=== PATIENT | male | born 1975 | race Caucasian/White ===

== ENCOUNTER 2019-01-06 11:16 | Inpatient (IN) | payer OTHER ==
[~2019-01-06] VITALS: Ht 185.4 cm; Wt 86.4 kg
[2019-01-06] MEDS ORDERED: LIDOcaine 1% w/epiNEPHrine 1:200,000 30ml vial IM ONE (11:20)
[2019-01-06] MEDS ORDERED: morphine 4 MG/ML inj SYRINge ONE (11:28)
[2019-01-06] MEDS ORDERED: morphine 4 MG/ML inj SYRINge IV ONE ×2 (11:30→11:55)
[2019-01-06 11:34] LABS: BASOPHILS % (AUTO) 0.7 % (0-1); EOSINOPHILS # (AUTO) 0.1 X10'3 (0-0.9); EOSINOPHILS % (AUTO) 1.8 % (0-6); HEMATOCRIT 45.8 % (42.0-52.0); HEMOGLOBIN 15.8 g/dl (14.0-17.9); LYMPHOCYTES # (AUTO) 1.3 X10'3 (1.1-4.8); LYMPHOCYTES % (AUTO) 17.2 % (21-51); MEAN CORPUSCULAR HEMOGLOBIN 29.8 PG (27.0-31.0); MEAN CORPUSCULAR HGB CONC 34.6 g/dL (33.0-36.5); MEAN CORPUSCULAR VOLUME 86.3 FL (78-98); MEAN PLATELET VOLUME 8.2 FL (7.4-10.4); MONOCYTES # (AUTO) 0.7 X10'3 (0-0.9); MONOCYTES % (AUTO) 9.9 % (2-12); NEUTROPHILS # (AUTO) 5.2 X10'3 (1.8-7.7); NEUTROPHILS % (AUTO) 70.4 % (42-75); PLATELET COUNT 224 X10'3 (140-440); RED BLOOD COUNT 5.31 X10'6 (4.70-6.10); RED CELL DISTRIBUTION WIDTH 13.6 % (11.5-14.5); WHITE BLOOD COUNT 7.4 X10'3 (4.5-11.0)
--- NOTE | 2019-01-06 11:39 | NUR ---
DR FIGUEROA AT BEDSIDE AT THIS TIME TO INSERT CHEST TUBE TO RIGHT SIDE CHEST, PATIENT AWARE OF PROCEDURE, ALL QUESTIONS AND CONCERNS ADDRESSED. BP 139/87, HR 103, RR 22, SPO2 96% ON ROOM AIR, MEDICATED FOR PAIN PER MD ORDER (SEE EMAR). 1143 INCISION MADE AT THIS TIME BY MD. PATIENT TOLERATING WELL, TUBE INSERTED, OFFICER AT BEDSIDE FOR SAFETY.
[2019-01-06 11:47] LABS: ALANINE AMINOTRANSFERASE 60 U/L (12-78); ALBUMIN 3.7 G/DL (3.4-5.0); ALKALINE PHOSPHATASE 84 IU/L (46-116); ANION GAP 6 (8-16); ASPARTATE AMINO TRANSFERASE 44 U/L (10-37); BILIRUBIN,TOTAL 0.5 MG/DL (0.1-1.0); BLOOD UREA NITROGEN 16 MG/DL (7-18); BUN/CREATININE RATIO 17.8 (5.4-32.0); CALCIUM 9.5 MG/DL (8.5-10.1); CHLORIDE 102 MMOL/L (99-107); GLUCOSE 94 MG/DL (70-104); POTASSIUM 4.2 MMOL/L (3.5-5.1); SODIUM 139 MMOL/L (135-145); TOTAL CARBON DIOXIDE 30.7 MMOL/L (24-32); TOTAL PROTEIN 7.5 G/DL (6.4-8.2); eGFR > 90 ML/MIN
--- NOTE | 2019-01-06 11:55 | NUR ---
PATIENT STATES PAIN 10/10 TO RIGHT SHOULDER, PAIN PREVIOUSLY PRESENT BUT HAS INCREASED SINCE TUBE PLACEMENT, PATIENT DIAPHORETIC, PALE, REPEAT CHEST XRAY CONFIRMED CORRECT PLACEMENT OF TUBE PER DR FIGUEROA. PATIENT MEDICATED FOR PAIN (SEE EMAR) PER MD ORDER. OFFICER AT BEDSIDE FOR SAFETY.
[2019-01-06] MEDS ORDERED: morphine 4 MG/ML inj SYRINge IV PRN (12:15)
[2019-01-06] MEDS ORDERED: NO HOME MEDS (12:20)
[2019-01-06] MEDS ORDERED: OMEP20TA23 PO (13:52)
--- NOTE | 2019-01-06 13:59 | NUR ---
PT GIVEN A DRINK OF WATER.
--- NOTE | 2019-01-06 15:00 | NUR ---
Patient in room [facility]. I have received report from Anabelle and had the opportunity to ask questions and assume patient care. patient orientated tounit. is inmate of [facility] cuffed at hands and feet. Guard present. patient pleasant and cooperative. chest tube in place draining minimal sero sang drainage. Low cont suction. Medicated x2 for pain. painful right shoulder, see xray note. medicated for pain.
[2019-01-06] MEDS ORDERED: ipratropium/albuterol 3ml nebule NEB PRN (15:05)
[2019-01-06] MEDS ORDERED: magnesium Cl slow-release 64mg tablet PO PRN (15:05)
[2019-01-06] MEDS ORDERED: potassium Cl 40MEQ/NS 500ml 500 ML IV PRN (15:05)
[2019-01-06] MEDS ORDERED: magnesium hydroxide 30ml (MOM) UD suspension PO PRN (15:05)
[2019-01-06] MEDS ORDERED: mag hydrox/Alum hydrox/simeth 30ml oral suspension PO PRN (15:05)
[2019-01-06] MEDS ORDERED: ondansetron/PF 4mg/2ml inj IV PRN (15:05)
[2019-01-06] MEDS ORDERED: diphenhydrAMINE 25mg capsule PO PRN (15:05)
[2019-01-06] MEDS ORDERED: magnesium 4gm in 100ml NS 100 ML IV PRN (15:05)
[2019-01-06] MEDS ORDERED: potassium Cl 20 mEq SR tablet PO PRN ×2 (15:05)
[2019-01-06] MEDS ORDERED: magnesium 2GM in 50ml NS 50 ML IV PRN (15:05)
[2019-01-06] MEDS ORDERED: potassium CL 10mEq/100ml bag 100 ML IV PRN (15:05)
[2019-01-06] MEDS ORDERED: morphine 2 MG/ML inj. syringe IV PRN (15:05)
[2019-01-06] MEDS ORDERED: diphenhydrAMINE 50 mg/ml inj IV PRN (15:05)
[2019-01-06] MEDS: K and/or MAG REPLACEMENT MC SCH (15:05)
[2019-01-06] MEDS ORDERED: acetaminophen 650mg rectal suppository RC PRN (15:05)
[2019-01-06] MEDS ORDERED: HYDROcodone/acetaminophen 5mg/325mg tablet PO PRN (15:05)
[2019-01-06] MEDS ORDERED: acetaminophen 325mg tablet PO PRN ×2 (15:05)
[2019-01-06] MEDS: normal saline 1000ml 1,000 ML IV SCH (16:42)
[2019-01-06] MEDS: HYDROcodone/acetaminophen 10/325mg tab PO PRN (16:47)
[2019-01-06 17:44] VITALS: BP 150/89
[2019-01-06] MEDS: morphine 2 MG/ML inj. syringe IV PRN ×2 (17:57→21:46)
--- NOTE | 2019-01-06 18:30 | NUR ---
Problems reprioritized. Patient report given, questions answered & plan of care reviewed with prudence RN.
--- NOTE | 2019-01-06 18:58 | NUR ---
Patient in room [facility]. I have received report from Carmella JC and had the opportunity to ask questions and assume patient care.
[2019-01-06 20:00] VITALS: BP 143/82
[2019-01-06] MEDS ORDERED: temazepam 15mg capsule PO PRN (21:00)
[2019-01-07] VITALS: BP 131/80
[2019-01-07] MEDS: normal saline 1000ml 1,000 ML IV SCH ×3 (00:05→19:23)
[2019-01-07] MEDS: HYDROcodone/acetaminophen 10/325mg tab PO PRN ×4 (00:12→21:43)
[2019-01-07] MEDS: morphine 2 MG/ML inj. syringe IV PRN ×3 (04:39→19:23)
[2019-01-07 04:59] LABS: BASOPHILS % (AUTO) 0.5 % (0-1); EOSINOPHILS # (AUTO) 0.2 X10'3 (0-0.9); EOSINOPHILS % (AUTO) 3.3 % (0-6); HEMATOCRIT 41.5 % (42.0-52.0); LYMPHOCYTES # (AUTO) 1.7 X10'3 (1.1-4.8); MEAN CORPUSCULAR HEMOGLOBIN 29.5 PG (27.0-31.0); MEAN CORPUSCULAR HGB CONC 33.7 g/dL (33.0-36.5); MEAN CORPUSCULAR VOLUME 87.6 FL (78-98); MEAN PLATELET VOLUME 8.3 FL (7.4-10.4); MONOCYTES # (AUTO) 0.6 X10'3 (0-0.9); MONOCYTES % (AUTO) 8.9 % (2-12); NEUTROPHILS # (AUTO) 3.9 X10'3 (1.8-7.7); NEUTROPHILS % (AUTO) 61.3 % (42-75); PLATELET COUNT 199 X10'3 (140-440); RED BLOOD COUNT 4.74 X10'6 (4.70-6.10); RED CELL DISTRIBUTION WIDTH 14.1 % (11.5-14.5); WHITE BLOOD COUNT 6.4 X10'3 (4.5-11.0)
[2019-01-07 05:36] LABS: ALANINE AMINOTRANSFERASE 52 U/L (12-78); ALBUMIN 3.1 G/DL (3.4-5.0); ALBUMIN/GLOBULIN RATIO 0.9 (1.1-1.5); ALKALINE PHOSPHATASE 71 IU/L (46-116); ANION GAP 5 (8-16); ASPARTATE AMINO TRANSFERASE 40 U/L (10-37); BILIRUBIN,TOTAL 0.7 MG/DL (0.1-1.0); BLOOD UREA NITROGEN 14 MG/DL (7-18); BUN/CREATININE RATIO 15.4 (5.4-32.0); CALCIUM 8.6 MG/DL (8.5-10.1); CHLORIDE 105 MMOL/L (99-107); CREATININE 0.91 MG/DL (0.60-1.10); GLUCOSE 91 MG/DL (70-104); MAGNESIUM 1.9 MG/DL (1.5-2.4); POTASSIUM 4.5 MMOL/L (3.5-5.1); SODIUM 141 MMOL/L (135-145); TOTAL CARBON DIOXIDE 30.9 MMOL/L (24-32); TOTAL PROTEIN 6.4 G/DL (6.4-8.2); eGFR 90 ML/MIN
--- NOTE | 2019-01-07 06:17 | NUR ---
Problems reprioritized. Patient report given, questions answered & plan of care reviewed with Oralia JC. Patient is sleeping with the guard in the room.
--- NOTE | 2019-01-07 06:18 | NUR ---
Patient in room [facility]. I have received report from Coleen JC and had the opportunity to ask questions and assume patient care.
[2019-01-07 07:00] VITALS: BP 139/96
[2019-01-07] MEDS: pantoprazole 40mg Tablet.DR PO SCH (07:45)
[2019-01-07] MEDS: K and/or MAG REPLACEMENT MC SCH (08:00)
[2019-01-07 11:00] VITALS: BP 106/57
--- NOTE | 2019-01-07 15:17 | NUR ---
Patient requested ice pack to relieve pain on his right shoulder blade. Ice pack applied on patient's right shoulder blade area, instructed patient not to let ice pack on his skin for > 20 minutes. Patient verbalized understanding
--- NOTE | 2019-01-07 18:39 | NUR ---
Problems reprioritized. Patient report given, questions answered & plan of care reviewed with Prudence RN.
--- NOTE | 2019-01-07 19:00 | NUR ---
Patient in room [facility]. I have received report from Oralia JC and had the opportunity to ask questions and assume patient care.
[2019-01-07 20:00] VITALS: BP 134/93
[2019-01-08] VITALS: BP 143/87
[2019-01-08] MEDS: morphine 2 MG/ML inj. syringe IV PRN ×2 (02:25→19:12)
[2019-01-08 05:11] LABS: BASOPHILS % (AUTO) 0.6 % (0-1); EOSINOPHILS # (AUTO) 0.2 X10'3 (0-0.9); EOSINOPHILS % (AUTO) 4.4 % (0-6); HEMATOCRIT 41.5 % (42.0-52.0); HEMOGLOBIN 14.1 g/dl (14.0-17.9); LYMPHOCYTES # (AUTO) 1.4 X10'3 (1.1-4.8); LYMPHOCYTES % (AUTO) 25.3 % (21-51); MEAN CORPUSCULAR HEMOGLOBIN 29.6 PG (27.0-31.0); MEAN CORPUSCULAR HGB CONC 33.9 g/dL (33.0-36.5); MEAN CORPUSCULAR VOLUME 87.3 FL (78-98); MEAN PLATELET VOLUME 8.1 FL (7.4-10.4); MONOCYTES # (AUTO) 0.5 X10'3 (0-0.9); MONOCYTES % (AUTO) 9.7 % (2-12); NEUTROPHILS # (AUTO) 3.4 X10'3 (1.8-7.7); PLATELET COUNT 219 X10'3 (140-440); RED BLOOD COUNT 4.76 X10'6 (4.70-6.10); RED CELL DISTRIBUTION WIDTH 13.9 % (11.5-14.5); WHITE BLOOD COUNT 5.7 X10'3 (4.5-11.0)
[2019-01-08] MEDS: normal saline 1000ml 1,000 ML IV SCH ×2 (05:32→15:35)
[2019-01-08] MEDS: HYDROcodone/acetaminophen 10/325mg tab PO PRN ×4 (05:38→21:26)
[2019-01-08 05:42] LABS: ALANINE AMINOTRANSFERASE 52 U/L (12-78); ALBUMIN 3.1 G/DL (3.4-5.0); ALBUMIN/GLOBULIN RATIO 0.9 (1.1-1.5); ALKALINE PHOSPHATASE 73 IU/L (46-116); ANION GAP 6 (8-16); ASPARTATE AMINO TRANSFERASE 35 U/L (10-37); BILIRUBIN,TOTAL 0.5 MG/DL (0.1-1.0); BLOOD UREA NITROGEN 12 MG/DL (7-18); BUN/CREATININE RATIO 15.2 (5.4-32.0); CALCIUM 8.5 MG/DL (8.5-10.1); CHLORIDE 105 MMOL/L (99-107); CREATININE 0.79 MG/DL (0.60-1.10); GLUCOSE 88 MG/DL (70-104); POTASSIUM 4.2 MMOL/L (3.5-5.1); SODIUM 141 MMOL/L (135-145); TOTAL CARBON DIOXIDE 29.9 MMOL/L (24-32); TOTAL PROTEIN 6.4 G/DL (6.4-8.2); eGFR > 90 ML/MIN
--- NOTE | 2019-01-08 06:33 | NUR ---
Patient in room [facility]. I have received report from Coleen JC and had the opportunity to ask questions and assume patient care.
--- NOTE | 2019-01-08 06:35 | NUR ---
Problems reprioritized. Patient report given, questions answered & plan of care reviewed with Oralia JC.
[2019-01-08 07:00] VITALS: BP 117/76
[2019-01-08] MEDS: pantoprazole 40mg Tablet.DR PO SCH (07:28)
[2019-01-08] MEDS: K and/or MAG REPLACEMENT MC SCH (08:00)
--- NOTE | 2019-01-08 08:39 | NUR ---
Placed patients chest tube to water seal per MD orders. Does not appear to have leak and no crepitis noted on palpation.
--- NOTE | 2019-01-08 09:19 | NUR ---
Dorina JC from [facility] called to get an update about the patient. I called the [employer] [employer] Sgt Willingham to find out if nurse Dorina works at the [facility] and if its okay for her to receive information about this patient, Sgt. Willingham confirmed to me that Dorina RN works there and that she is okay to receive an update about this patient. I gave update to Dorina about the patient's condition.
[2019-01-08 11:00] VITALS: BP 117/79
--- NOTE | 2019-01-08 19:01 | NUR ---
MRI was paged, called back. Can do MRI tonight at 1920. [facility] will need a min of 1 hour notice to have someone here to accompany pt. will plan for first thing in am. Addendum: 01/08/19 at 1902 by Shaista Will RN Amended: Links added.
[2019-01-08 19:40] VITALS: BP 125/82
[2019-01-09] VITALS: BP 107/86
[2019-01-09] MEDS: HYDROcodone/acetaminophen 10/325mg tab PO PRN ×5 (01:55→23:03)
[2019-01-09 05:11] LABS: BASOPHILS % (AUTO) 0.7 % (0-1); EOSINOPHILS # (AUTO) 0.2 X10'3 (0-0.9); EOSINOPHILS % (AUTO) 3.5 % (0-6); HEMATOCRIT 41.4 % (42.0-52.0); LYMPHOCYTES # (AUTO) 1.5 X10'3 (1.1-4.8); LYMPHOCYTES % (AUTO) 27.4 % (21-51); MEAN CORPUSCULAR HEMOGLOBIN 29.3 PG (27.0-31.0); MEAN CORPUSCULAR HGB CONC 33.8 g/dL (33.0-36.5); MEAN CORPUSCULAR VOLUME 86.7 FL (78-98); MEAN PLATELET VOLUME 7.8 FL (7.4-10.4); MONOCYTES # (AUTO) 0.6 X10'3 (0-0.9); MONOCYTES % (AUTO) 10.5 % (2-12); NEUTROPHILS # (AUTO) 3.2 X10'3 (1.8-7.7); NEUTROPHILS % (AUTO) 57.9 % (42-75); PLATELET COUNT 226 X10'3 (140-440); RED BLOOD COUNT 4.77 X10'6 (4.70-6.10); RED CELL DISTRIBUTION WIDTH 13.9 % (11.5-14.5); WHITE BLOOD COUNT 5.6 X10'3 (4.5-11.0)
[2019-01-09 05:22] LABS: ALANINE AMINOTRANSFERASE 49 U/L (12-78); ALBUMIN 3.1 G/DL (3.4-5.0); ALBUMIN/GLOBULIN RATIO 0.9 (1.1-1.5); ALKALINE PHOSPHATASE 70 IU/L (46-116); ANION GAP 4 (8-16); ASPARTATE AMINO TRANSFERASE 27 U/L (10-37); BILIRUBIN,TOTAL 0.5 MG/DL (0.1-1.0); BLOOD UREA NITROGEN 14 MG/DL (7-18); BUN/CREATININE RATIO 15.9 (5.4-32.0); CALCIUM 8.7 MG/DL (8.5-10.1); CHLORIDE 105 MMOL/L (99-107); CREATININE 0.88 MG/DL (0.60-1.10); GLUCOSE 88 MG/DL (70-104); MAGNESIUM 1.9 MG/DL (1.5-2.4); POTASSIUM 4.4 MMOL/L (3.5-5.1); SODIUM 140 MMOL/L (135-145); TOTAL CARBON DIOXIDE 31.2 MMOL/L (24-32); TOTAL PROTEIN 6.5 G/DL (6.4-8.2); eGFR > 90 ML/MIN
--- NOTE | 2019-01-09 06:37 | NUR ---
Problems reprioritized. Patient report given, questions answered & plan of care reviewed with HOSEA Flores. Addendum: 01/09/19 at 0637 by Shaista Will RN Amended: Links added.
[2019-01-09 07:00] VITALS: BP 103/65
[2019-01-09] MEDS: pantoprazole 40mg Tablet.DR PO SCH (07:17)
[2019-01-09] MEDS: K and/or MAG REPLACEMENT MC SCH (08:00)
[2019-01-09 11:00] VITALS: BP 92/59
--- NOTE | 2019-01-09 18:38 | NUR ---
Patient in room [facility]. I have received report from Sandra Spencer and had the opportunity to ask questions and assume patient care. Addendum: 01/09/19 at 1838 by Zuleyma Sosa RN Amended: Links added.
[2019-01-09 19:10] VITALS: BP 147/80
--- NOTE | 2019-01-09 19:19 | NUR ---
a/o pleasant given decaf coffee per request after redressing left ac iv site per request. no s&s of distress at this time.
--- NOTE | 2019-01-09 21:30 | NUR ---
pt resting eyes closed without changes. Addendum: 01/09/19 at 2220 by Zuleyma Sosa RN wrong pt. pt c/o left ac Iv site painful and site dc'd cath intact. x2 sticks #22 inserted left upper forearm and flushed easily. taped in place. pt stated it feels a lot better. pt states pain in right shoulder still remains but fine not moving and seems to be slowly improving. he wants to know what MRI showed stated laying on that side was so painful he couldn't complete it.
--- NOTE | 2019-01-09 23:06 | NUR ---
pt medicated for pain with norco 7/10 and sandwich given to him so norco would not upset his stomach.
[2019-01-10] VITALS: BP 132/86
--- NOTE | 2019-01-10 01:08 | NUR ---
pt resting on left side without changes.
--- NOTE | 2019-01-10 03:00 | NUR ---
pt resting eyes closed no s&s of distress at this time.
--- NOTE | 2019-01-10 05:05 | NUR ---
lab in to draw pt blood and then medicated for pain with po norco.
[2019-01-10] MEDS: HYDROcodone/acetaminophen 10/325mg tab PO PRN ×2 (05:16→10:54)
--- NOTE | 2019-01-10 06:19 | NUR ---
Problems reprioritized. Patient report given, questions answered & plan of care reviewed with Sandra Spencer. Addendum: 01/10/19 at 0619 by Zuleyma Sosa RN Amended: Links added.
[2019-01-10 06:21] LABS: ALANINE AMINOTRANSFERASE 51 U/L (12-78); ALBUMIN 3.3 G/DL (3.4-5.0); ALKALINE PHOSPHATASE 72 IU/L (46-116); ANION GAP 7 (8-16); ASPARTATE AMINO TRANSFERASE 30 U/L (10-37); BILIRUBIN,TOTAL 0.6 MG/DL (0.1-1.0); BLOOD UREA NITROGEN 18 MG/DL (7-18); CALCIUM 8.6 MG/DL (8.5-10.1); CHLORIDE 103 MMOL/L (99-107); GLUCOSE 85 MG/DL (70-104); MAGNESIUM 2.1 MG/DL (1.5-2.4); SODIUM 139 MMOL/L (135-145); TOTAL PROTEIN 6.7 G/DL (6.4-8.2); eGFR > 90 ML/MIN
[2019-01-10 06:59] LABS: BASOPHILS # (AUTO) 0.1 X10'3 (0-0.2); BASOPHILS % (AUTO) 0.7 % (0-1); EOSINOPHILS # (AUTO) 0.2 X10'3 (0-0.9); HEMATOCRIT 42.1 % (42.0-52.0); HEMOGLOBIN 14.5 g/dl (14.0-17.9); LYMPHOCYTES # (AUTO) 1.5 X10'3 (1.1-4.8); LYMPHOCYTES % (AUTO) 20.9 % (21-51); MEAN CORPUSCULAR HEMOGLOBIN 29.6 PG (27.0-31.0); MEAN CORPUSCULAR HGB CONC 34.6 g/dL (33.0-36.5); MEAN CORPUSCULAR VOLUME 85.7 FL (78-98); MONOCYTES # (AUTO) 0.7 X10'3 (0-0.9); MONOCYTES % (AUTO) 10.4 % (2-12); NEUTROPHILS # (AUTO) 4.7 X10'3 (1.8-7.7); PLATELET COUNT 245 X10'3 (140-440); RED BLOOD COUNT 4.91 X10'6 (4.70-6.10); RED CELL DISTRIBUTION WIDTH 13.9 % (11.5-14.5); WHITE BLOOD COUNT 7.2 X10'3 (4.5-11.0)
[2019-01-10 07:00] VITALS: BP 110/70
[2019-01-10] MEDS: K and/or MAG REPLACEMENT MC SCH (08:00)
[2019-01-10] MEDS: pantoprazole 40mg Tablet.DR PO SCH (08:38)
== END 2019-01-10 11:45 | DRG 200 ==
LOC: ER 11:17 → EEVIPCON 11:19 → ER 11:19 → SUR 3N 13:34 → CMPBEDREQ 19:28
PROVIDERS: ADMIT Emergency Medicine; ATTEND Family Medicine
PROC: 0W9930Z Drainage of Right Pleural Cavity with Drainage Device, Percutaneous Approach (ICD-10-PCS; principal; 2019-01-06)
DX: S27.0XXA Traumatic pneumothorax, initial encounter (principal); S22.31XA Fracture of one rib, right side, initial encounter for closed fracture; F12.90 Cannabis use, unspecified, uncomplicated; M25.511 Pain in right shoulder; F17.210 Nicotine dependence, cigarettes, uncomplicated; K21.9 Gastro-esophageal reflux disease without esophagitis; Y08.89XA Assault by other specified means, initial encounter; Y93.89 Activity, other specified; Y92.89 Other specified places as the place of occurrence of the external cause; Y99.8 Other external cause status; Z72.89 Other problems related to lifestyle
CPT/HCPCS: 32551; 36415; 71045; 73030; 73221; 80053; 83735; 85025; 87081; 94760; 96374; 99285; G0378; J2270; J7030

== ENCOUNTER 2019-08-09 23:17 | Emergency (ER) | payer MEDICAID, OTHER ==
[~2019-08-09] VITALS: Ht 185.4 cm; Wt 84.1 kg
[~2019-08-09 23:17] MED LIST: OMEP20TA23 PO
[2019-08-09 23:20] VITALS: BP 150/99
--- NOTE | 2019-08-10 00:24 | NUR ---
Patient advised UA needed, Padma JC brought pitcher of ice water.
--- NOTE | 2019-08-10 00:31 | NUR ---
Patient got up and left w/o treatment. I stopped him on the way out and he said he was just going home and didn't want to stay.
[2019-08-10 00:41] LABS: ALANINE AMINOTRANSFERASE 68 U/L (12-78); ALBUMIN 4.3 G/DL (3.4-5.0); ALBUMIN/GLOBULIN RATIO 1.3 (1.1-1.5); ALKALINE PHOSPHATASE 89 IU/L (46-116); ANION GAP 7 (8-16); ASPARTATE AMINO TRANSFERASE 39 U/L (10-37); BILIRUBIN,TOTAL 0.8 MG/DL (0.1-1.0); BLOOD UREA NITROGEN 23 MG/DL (7-18); BUN/CREATININE RATIO 21.5 (5.4-32.0); CALCIUM 9.7 MG/DL (8.5-10.1); CHLORIDE 105 MMOL/L (99-107); CREATININE 1.07 MG/DL (0.60-1.10); ETHANOL < 0.010 GM/DL (0.0-0.010); GLUCOSE 95 MG/DL (70-104); POTASSIUM 3.6 MMOL/L (3.5-5.1); SODIUM 139 MMOL/L (135-145); TOTAL CARBON DIOXIDE 26.8 MMOL/L (24-32); TOTAL PROTEIN 7.6 G/DL (6.4-8.2); eGFR 75 ML/MIN
--- NOTE | 2019-08-10 00:48 | NUR ---
pt returned to ER room 3 stating that he just wanted to go out for a smoke. Pt informed that patients are not able to leave for any reason with IV access in place.
[2019-08-10 00:50] LABS: ACETAMINOPHEN < 2.0 UG/ML (10-30)
[2019-08-10 00:59] LABS: BASOPHILS # (AUTO) 0.1 X10'3 (0-0.2); EOSINOPHILS % (AUTO) 0.8 % (0-6); HEMATOCRIT 47.2 % (42.0-52.0); HEMOGLOBIN 16.5 g/dl (14.0-17.9); LYMPHOCYTES % (AUTO) 32.9 % (21-51); MEAN CORPUSCULAR HEMOGLOBIN 30.1 PG (27.0-31.0); MEAN CORPUSCULAR HGB CONC 34.9 g/dL (33.0-36.5); MEAN CORPUSCULAR VOLUME 86.1 FL (78-98); MEAN PLATELET VOLUME 8.7 FL (7.4-10.4); MONOCYTES # (AUTO) 0.4 X10'3 (0-0.9); MONOCYTES % (AUTO) 7.6 % (2-12); NEUTROPHILS # (AUTO) 3.4 X10'3 (1.8-7.7); NEUTROPHILS % (AUTO) 57.7 % (42-75); PLATELET COUNT 193 X10'3 (140-440); RED BLOOD COUNT 5.49 X10'6 (4.70-6.10); RED CELL DISTRIBUTION WIDTH 13.5 % (11.5-14.5); WHITE BLOOD COUNT 5.9 X10'3 (4.5-11.0)
[2019-08-10 01:19] LABS: URINE AMPHETAMINE SCREEN POSITIVE (Neg); URINE BARBITUATE SCREEN NEGATIVE (Neg); URINE BENZODIAZEPINES SCREEN NEGATIVE (Neg); URINE CANNABINOID SCREEN POSITIVE (Neg); URINE COCAINE SCREEN NEGATIVE (Neg); URINE METHADONE SCREEN NEGATIVE (Neg); URINE OPIATE SCREEN NEGATIVE (Neg); URINE PHENCYCLIDINE SCREEN NEGATIVE (Neg)
== END 2019-08-10 01:30 | disposition home or self-care (01) ==
LOC: ER 23:17
DX: R51 Headache (principal); R11.2 Nausea with vomiting, unspecified; R10.9 Unspecified abdominal pain; F12.90 Cannabis use, unspecified, uncomplicated; F15.90 Other stimulant use, unspecified, uncomplicated; F17.200 Nicotine dependence, unspecified, uncomplicated; Z79.899 Other long term (current) drug therapy
CPT/HCPCS: 36415; 80053; 80305; 80320; 80329; 85025; 99283